=== PATIENT | male | born 1995 | race Caucasian/White ===

== ENCOUNTER 2017-09-10 22:41 | Emergency (ER) | payer BC, SELFPAY ==
[2017-09-10 22:42] VITALS: BP 126/75; PULSE 75; RESP 17; TEMP 36.6; O2SAT 97; BMI 21.1
[2017-09-10 23:49] LABS: Basophils # 0.1 K/mm3 (0-0.2); Basophils % 0.7 % (0.1-2.0); Eosinophils # 0.1 K/mm3 (0.0-0.4); Eosinophils % 1.4 % (0.1-12.0); Hematocrit 44.8 % (42.0-52.0); Hemoglobin 16.3 g/dL (14.1-18.0); Lymphocytes # 2.1 K/mm3 (0.7-4.5); Lymphocytes % 32.9 K/mm3 (10-50); Mean Corpuscular HGB Conc 36.4 g/dL (31.8-35.4); Mean Corpuscular Volume 85.2 fl (80-94); Mean Platelet Volume 8.2 fl (7.4-10.4); Monocytes # 0.8 K/mm3 (0.1-1.0); Monocytes % 11.9 % (1.7-9.3); Neutrophils # 3.4 K/mm3 (1.8-7.8); Platelet Count 192 K/mm3 (142-424); Red Blood Count 5.26 M/mm3 (4.60-6.20); Red Cell Distribution Width 12.4 % (11.5-17.5); White Blood Count 6.4 K/mm3 (4.5-13.0)
[2017-09-11 00:03] LABS: Alanine Aminotransferase 37 U/L (12-78); Albumin Level 3.7 gm/dL (3.4-5.0); Albumin/Globulin Ratio 1.1 (1.1-1.8); Alkaline Phosphatase 60 U/L (46-116); Amylase 35 U/L (25-125); Anion Gap 11.6 mEq/L (5-15); Aspartate Amino Transferase 22 U/L (15-37); Bilirubin,Total 1.2 mg/dL (0.2-1.0); Blood Urea Nitrogen 17 mg/dL (7-18); Calcium 8.2 mg/dL (8.5-10.1); Carbon Dioxide 29 mmol/L (21.0-32.0); Chloride 102 mmol/L (98-107); Creatinine Clearance Estimated 155 mL/min (0-300); Creatinine,Serum 0.78 mg/dL (0.70-1.30); Estimated Glomerular Filt Rate 127 ml/min (>60); GFR (African American) 154 ML/MIN (>60); Globulin 3.5 gm/dl (1.3-3.2); Glucose 99 mg/dL (74-106); Lipase 65 u/L (73-393); Potassium 3.6 mmoL/L (3.5-5.1); Sodium 139 mmol/L (136-145); Total Protein,Serum 7.2 gm/dL (6.4-8.2)
[2017-09-11 00:12] VITALS: BP 116/69; PULSE 74; RESP 18; TEMP 36.9; O2SAT 97
--- NOTE | 2017-09-11 01:00 | CT_ITS ---
CT abdomen pelvis w con CLINICAL INDICATION: ITS.REASON: abd pain and diarrhea , zinc poisoning? ORDERING PHYSICIAN: Arvin Quiroz MD PATIENT AGE: 21 years COMPARISON: None TECHNIQUE: Axial images obtained with sagittal and coronal reformats. All CT scans at the facility use one or more dose reduction, viz: automated exposure control; ma/kV adjustment per patient size (including targeted exams where dose is matched to indication; i.e. head); or iterative reconstruction technique. PROCEDURE: Oral Contrast: None IV Contrast: 75 mL's of [id number].. FINDINGS: No acute finding in the lower chest. No focal liver lesion. There is a linear area of decreased attenuation involving the medial segment left hepatic lobe extending inferiorly to questionable clinical significance. Spleen, adrenal glands, and pancreas are unremarkable. No hydronephrosis renal mass or obstructing renal or ureteral calculus. Minimally distended fluid-filled loops of small bowel are present. No obvious transition point Small amount fluid is present in the cecal region. Unremarkable appendix. No evidence of intestinal obstruction or free air. There are some small lymph nodes in the mesentery's nonspecific. No acute bony anomalies. IMPRESSION: 1. Fluid-filled loops of minimally prominent small bowel consistent with ileus/enteritis. 2. Otherwise negative CT abdomen pelvis
--- NOTE | 2017-09-11 01:03 | [facility].EDGENADL ---
ED Disposition Clinical Impression: Vomiting and diarrhea, Enteritis, Mesenteric adenitis, Zinc-fume fever Disposition: Home, Self-Care Condition on Discharge: Fair Instructions: DI for Diarrhea and Traveler's Diarrhea -- Adult, DI for Diarrhea and Traveler's Diarrhea -- Child, DI for Nausea -- Adult, DI for Nausea -- Child Additional Instructions: 1- off work x 3 days 2- zofran and imodiunm prn 3- plenty of gotrade 16 oz q 4. 4- obsrve 4-5 uop a day. 5- diarrhea panel as an outpatient. 6- follow up with dr pacheco on final zinc znd diarrhea panel results. 7- return to the ED if fever develops , worse vomiting and diarrhea or any new sx. Prescriptions: Loperamide HCl [Imodium A-D] 2 mg PO Q6HP PRN #12 cap PRN Reason: Diarrhea Dicyclomine HCl [Bentyl 10mg capsule] 10 mg PO Q8HP PRN #15 cap PRN Reason: Cramping Ondansetron [Zofran 4mg ODT] 4 mg PO Q8HP PRN #6 tab.rapdis PRN Reason: Nausea Forms: Work/School Release - Critical Care Critical Care Time: No Attestation: On 09/10/17, the high probability of a clinically significant, sudden or life threatening deterioration of the following system(s) required my full and direct attention, intervention and personal management. The time I documented below is in addition to time spent performing reported procedures but includes the following listed in this critical care notation. Medical Decision Making - Ace Inquiry Pt receiving controlled substance: No Ace was queried for this patient: No Vital Signs: 09/10/17 22:42 09/11/17 00:12 09/11/17 01:14 Temperature 97.9 F 98.5 F Temperature Source Oral Oral Pulse Rate [Orthostatic Lying] 72 Pulse Rate [Orthostatic Sitting] 88 Pulse Rate [Orthostatic Standing] 86 Pulse Rate [Right Brachial] 75 74 Respiratory Rate 17 18 Blood Pressure [Left Arm] 126/75 116/69 Blood Pressure [Orthostatic Lying] 116/61 Blood Pressure [Orthostatic Sitting] 107/52 Blood Pressure [Orthostatic Standing] 115/76 Blood Pressure Mean [Left Arm] 92 84 Blood Pressure Source [Left Arm] Automatic Cuff Automatic Cuff Blood Pressure Position [Left Arm] Sitting Sitting 02 Sat by Pulse Oximetry 97 97 Oxygen Delivery Method Room Air Room Air - Lab Data Lab Results 09/10/17 23:40: WBC 6.4, RBC 5.26, Hgb 16.3, Hct 44.8, MCV 85.2, MCH 31.0, MCHC 36.4 H, RDW 12.4, Plt Count 192, MPV 8.2, Neut % (Auto) 53.0, Lymph % (Auto) 32.9, [place] % (Auto) 11.9 H, Eos % (Auto) 1.4, Baso % (Auto) 0.7, Neut # (Auto) 3.4, Lymph # (Auto) 2.1, [place] # (Auto) 0.8, Eos # (Auto) 0.1, Baso # (Auto) 0.1 09/10/17 23:40: Sodium 139, Potassium 3.6, Chloride 102, Carbon Dioxide 29, Anion Gap 11.6, BUN 17, Creatinine 0.78, Estimated Creat Clear 155, Estimated GFR 127, Est GFR ( Amer) 154, Glucose 99, Calcium 8.2 L, Total Bilirubin 1.2 H, AST 22, ALT 37, Alkaline Phosphatase 60, Total Protein 7.2, Albumin 3.7, Globulin 3.5 H, Albumin/Globulin Ratio 1.1, Amylase 35, Lipase 65 L 09/10/17 23:40: Magnesium 1.8 Result diagrams: 09/10/17 23:40 09/10/17 23:40 Orders (Tests/Meds): ED MEDICATIONS Discontinued Medications Generic Name Dose Route Start Last Admin Trade Name Airam PRN Reason Stop Dose Admin Sodium Chloride 1,000 mls @ 999 mls/hr 09/11/17 01:15 09/11/17 01:19 Sod Chlor 0.9% 1000ml Bag IV 09/11/17 02:15 999 mls/hr .Q1H1M LNECHO Administration Iopamidol 75 ml 09/11/17 01:46 09/11/17 01:48 [id number]; 100ml Vial IV 09/11/17 01:47 75 ml ONCE ONE Administration Ondansetron HCl 4 mg 09/11/17 01:14 09/11/17 01:19 Zofran 4mg/2ml Vial IV 09/11/17 01:15 4 mg ONCE ONE Administration Sodium Chloride 10 ml 09/11/17 01:46 09/11/17 01:47 Rad-Saline Flush 10ml Syringe IV 09/11/17 01:47 10 ml ONCE ONE Administration ORDERS Category Date Time Status CT abdomen pelvis w con Stat Cat Scan 09/11/17 01:00 Taken Diarrhea Panel, PCR Stat Lab 09/11/17 01:00 Ordered Zinc Stat
--- NOTE | 2017-09-11 01:06 | ED_ITS ---
ED Disposition Clinical Impression: Vomiting and diarrhea, Enteritis, Mesenteric adenitis, Zinc-fume fever Disposition: Home, Self-Care Condition on Discharge: Fair Instructions: DI for Diarrhea and Traveler's Diarrhea -- Adult, DI for Diarrhea and Traveler's Diarrhea -- Child, DI for Nausea -- Adult, DI for Nausea -- Child Additional Instructions: 1- off work x 3 days 2- zofran and imodiunm prn 3- plenty of gotrade 16 oz q 4. 4- obsrve 4-5 uop a day. 5- diarrhea panel as an outpatient. 6- follow up with dr pacheco on final zinc znd diarrhea panel results. 7- return to the ED if fever develops , worse vomiting and diarrhea or any new sx. Prescriptions: Loperamide HCl [Imodium A-D] 2 mg PO Q6HP PRN #12 cap PRN Reason: Diarrhea Dicyclomine HCl [Bentyl 10mg capsule] 10 mg PO Q8HP PRN #15 cap PRN Reason: Cramping Ondansetron [Zofran 4mg ODT] 4 mg PO Q8HP PRN #6 tab.rapdis PRN Reason: Nausea Forms: Work/School Release - Critical Care Critical Care Time: No Attestation: On 09/10/17, the high probability of a clinically significant, sudden or life threatening deterioration of the following system(s) required my full and direct attention, intervention and personal management. The time I documented below is in addition to time spent performing reported procedures but includes the following listed in this critical care notation. Medical Decision Making - Ace Inquiry Pt receiving controlled substance: No Ace was queried for this patient: No Vital Signs: 09/10/17 22:42 09/11/17 00:12 09/11/17 01:14 Temperature 97.9 F 98.5 F Temperature Source Oral Oral Pulse Rate [Orthostatic Lying] 72 Pulse Rate [Orthostatic Sitting] 88 Pulse Rate [Orthostatic Standing] 86 Pulse Rate [Right Brachial] 75 74 Respiratory Rate 17 18 Blood Pressure [Left Arm] 126/75 116/69 Blood Pressure [Orthostatic Lying] 116/61 Blood Pressure [Orthostatic Sitting] 107/52 Blood Pressure [Orthostatic Standing] 115/76 Blood Pressure Mean [Left Arm] 92 84 Blood Pressure Source [Left Arm] Automatic Cuff Automatic Cuff Blood Pressure Position [Left Arm] Sitting Sitting 02 Sat by Pulse Oximetry 97 97 Oxygen Delivery Method Room Air Room Air - Lab Data Lab Results 09/10/17 23:40: WBC 6.4, RBC 5.26, Hgb 16.3, Hct 44.8, MCV 85.2, MCH 31.0, MCHC 36.4 H, RDW 12.4, Plt Count 192, MPV 8.2, Neut % (Auto) 53.0, Lymph % (Auto) 32.9, [place] % (Auto) 11.9 H, Eos % (Auto) 1.4, Baso % (Auto) 0.7, Neut # (Auto) 3.4, Lymph # (Auto) 2.1, [place] # (Auto) 0.8, Eos # (Auto) 0.1, Baso # (Auto) 0.1 09/10/17 23:40: Sodium 139, Potassium 3.6, Chloride 102, Carbon Dioxide 29, Anion Gap 11.6, BUN 17, Creatinine 0.78, Estimated Creat Clear 155, Estimated GFR 127, Est GFR ( Amer) 154, Glucose 99, Calcium 8.2 L, Total Bilirubin 1.2 H, AST 22, ALT 37, Alkaline Phosphatase 60, Total Protein 7.2, Albumin 3.7, Globulin 3.5 H, Albumin/Globulin Ratio 1.1, Amylase 35, Lipase 65 L 09/10/17 23:40: Magnesium 1.8 Result diagrams: 09/10/17 23:40 09/10/17 23:40 Orders (Tests/Meds): ED MEDICATIONS Discontinued Medications Generic Name Dose Route Start Last Admin Trade Name Airam PRN Reason Stop Dose Admin Sodium Chloride 1,000 mls @ 999 mls/hr 09/11/17 01:15 09/11/17 01:19 Sod Chlor 0.9% 1000ml Bag IV 09/11/17 02:15 999 mls/hr
[2017-09-11 01:14] VITALS: BP 107/52; BP 115/76; BP 116/61; PULSE 72; PULSE 86; PULSE 88
[2017-09-11 01:31] LABS: Magnesium 1.8 mg/dL (1.4-2.2)
[2017-09-11 02:32] VITALS: BP 121/78; PULSE 80; RESP 20; TEMP 37.1; O2SAT 99
== END 2017-09-11 02:32 | disposition home or self-care (01) ==
PROVIDERS: Emergency Provider Emergency Medicine
DX: K52.9 Noninfective gastroenteritis and colitis, unspecified (principal); I88.0 Nonspecific mesenteric lymphadenitis; T56.891A Toxic effect of other metals, accidental (unintentional), initial encounter
CPT/HCPCS: 74177; 80053; 82150; 83690; 83735; 85025; 96365; 96375; 99284; J2405; Q9967